=== PATIENT | female | born 1965 | race Caucasian/White ===

== ENCOUNTER 2021-11-13 09:15 | Day surgery (SDC) | payer OTHER ==
[~2021-11-13] VITALS: Ht 167.6 cm; Wt 70.9 kg
[2021-11-13 10:09] VITALS: BP 133/110; PULSE 99; TEMP 98.4
[2021-11-13] MEDS ORDERED: COMPOUND DRUG (10:14)
[2021-11-13] MEDS ORDERED: LINZESS72 MCG PO (10:14)
--- NOTE | 2021-11-13 10:34 | NUR ---
BLOOD PRESSURE ON RECHECK 140/81. DOES ADMIT TO BEING NERVOUS.
[2021-11-13 11:50] VITALS: BP 119/53; PULSE 78; TEMP 97.6
--- NOTE | 2021-11-13 11:57 | NUR ---
1150 - PT arrives from procedure drowsy but oriented x4. PT assisted out of bed and ambulated from cart to chair 2:1. Monitors and warm blankets applied. PT denies pain and nausea. VSS. Visitor is present. PT oriented to room and call milian, within reach. Will monitor per intervals. Verbal room report recieved. PT provided w/ ice water and buttered toast w/ strawberry jam per request; visitor refused refreshments.
[2021-11-13 12:05] VITALS: BP 121/67; PULSE 73
--- NOTE | 2021-11-13 12:07 | NUR ---
1205 - VSS. PT denies pain and nasuea. NO vomiting. Call milian remains within reach. PT expressed desire to be discharged. Awaiting DR to speak w/ PT. Visitor remains present.
[2021-11-13 12:20] VITALS: BP 125/61; PULSE 70
--- NOTE | 2021-11-13 12:37 | NUR ---
1220 - has spoken w/ PT. VSS. IV discontinued. Catheter tip intact. Pressure bandage applied. NO redness or swelling noted. DC instructions and educational material reveiewed with the PT who verbalized understanding and signed the related paperwork. Questions answered to PT satisfaction. PT refused RN assistance changing into personal clothes; call milian remains within reach and visitor remains present.
--- NOTE | 2021-11-13 12:50 | NUR ---
1245 - PT dismissed from endo via wheelchair to the PT entrence by Kami [facility]. PT has DC packet and personal belonings and was transferred into the care of Manny, who is driving private car.
== END 2021-11-13 12:50 | disposition home or self-care (01) ==
LOC: SDCO 09:15
DX: Z12.11 Encounter for screening for malignant neoplasm of colon (principal); D12.4 Benign neoplasm of descending colon; K62.89 Other specified diseases of anus and rectum
CPT/HCPCS: J2704; J7120